=== PATIENT | female | born 1960 | race African-American/Black ===

== ENCOUNTER → 2017-03-16 | Outpatient (CLI) | payer OTHER ==
[~2017-03-16] MED LIST: FLEXERIL PO; MEDROLDOSEPACK PO; MOBIC15 MG PO
== END ==
LOC: RAD 08:59
DX: Z12.31 Encounter for screening mammogram for malignant neoplasm of breast (principal)

== ENCOUNTER → 2017-04-04 | Outpatient (CLI) | payer OTHER | LOC: RAD 10:19 | DX: R05 Cough (principal) ==

== ENCOUNTER 2017-07-01 13:54 | Emergency (ER) | payer OTHER ==
[~2017-07-01] VITALS: Ht 157.5 cm; Wt 60.8 kg
[2017-07-01 15:15] VITALS: BP 120/73
[2017-07-01] MEDS ORDERED: FLEXERIL PO (15:46)
[2017-07-01] MEDS ORDERED: MEDROLDOSEPACK PO (15:46)
[2017-07-01] MEDS ORDERED: MOBIC15 MG PO (15:46)
== END 2017-07-01 16:06 | disposition home or self-care (01) ==
LOC: ER 13:54
DX: S39.012A Strain of muscle, fascia and tendon of lower back, initial encounter (principal); K21.9 Gastro-esophageal reflux disease without esophagitis; Z90.710 Acquired absence of both cervix and uterus; Z88.2 Allergy status to sulfonamides; V89.2XXA Person injured in unspecified motor-vehicle accident, traffic, initial encounter; Y93.89 Activity, other specified; Y92.89 Other specified places as the place of occurrence of the external cause; Y99.8 Other external cause status

== ENCOUNTER → 2017-07-07 | Outpatient (CLI) | payer OTHER | LOC: RAD 15:03 | DX: M54.6 Pain in thoracic spine (principal); M47.896 Other spondylosis, lumbar region; M48.07 Spinal stenosis, lumbosacral region; M77.8 Other enthesopathies, not elsewhere classified ==

== ENCOUNTER → 2018-05-04 | Outpatient (CLI) | payer BC | LOC: RAD 04-20 14:30 | DX: Z12.31 Encounter for screening mammogram for malignant neoplasm of breast (principal) ==

== ENCOUNTER → 2019-06-05 | Outpatient (CLI) | payer BC | LOC: BC 11:25 | DX: Z12.31 Encounter for screening mammogram for malignant neoplasm of breast (principal) ==

== ENCOUNTER → 2020-07-01 | Outpatient (CLI) | payer BC | LOC: BC 09:22 | PROVIDERS: ATTEND Obstetrics & Gynecology | DX: Z12.31 Encounter for screening mammogram for malignant neoplasm of breast (principal) ==